=== PATIENT | male | born 1975 | race Caucasian/White ===

== ENCOUNTER → 2020-09-16 | Outpatient (CLI) | payer BC, OTHER ==
--- NOTE | 2020-09-16 08:31 | Diagnostic Imaging Report ---
PROCEDURE: CT abdomen and pelvis without contrast. TECHNIQUE: Multiple contiguous axial images were obtained through the abdomen and pelvis without the use of intravenous contrast. Auto Exposure Controls were utilized during the CT exam to meet ALARA standards for radiation dose reduction. INDICATION: Bilateral flank pain. Microhematuria. Nausea and vomiting. COMPARISON: None. FINDINGS: The heart is unremarkable. The lung bases are clear. A 5 mm calculus is seen at the right UVJ with mild right-sided hydroureteronephrosis. Bilateral nonobstructing calculi are present with the largest in the left mid kidney measuring 5 mm and the largest in the mid right kidney measuring 2 mm. No hydronephrosis is seen on the left kidney. No significant perinephric fat stranding. The urinary bladder is nondistended. Tiny focus of hypoattenuation is seen in the right hepatic lobe measuring 5 mm. This is favored to represent benign cyst or hemangioma. The gallbladder is unremarkable. No intra or extrahepatic biliary dilation. The spleen, pancreas, and adrenal glands have a normal appearance. There is no pathologically enlarged mesenteric or retroperitoneal adenopathy. The bowel loops are nondilated. The appendix is visualized in the right lower quadrant and has a normal appearance. Scattered diverticuli are present in the sigmoid colon without evidence of acute diverticulitis. There is no free fluid or free air. No acute osseous abnormalities. There is no free air, loculated collection, or adenopathy in the pelvis. IMPRESSION: 1. Obstructing calculus in the right UVJ with mild right-sided hydroureteronephrosis. 2. Bilateral nonobstructing calculi. 3. Scattered diverticuli without evidence of acute diverticulitis. Dictated by: Dictated on workstation # [id number]
== END ==
LOC: RAD 07:45
PROVIDERS: ATTEND Nurse Practitioner Family
DX: N20.2 Calculus of kidney with calculus of ureter (principal); I10 Essential (primary) hypertension; E78.49 Other hyperlipidemia; K57.30 Diverticulosis of large intestine without perforation or abscess without bleeding
CPT/HCPCS: 74176

== ENCOUNTER → 2021-11-26 | Outpatient (CLI) | payer BC ==
[2021-11-26 11:01] VITALS: BP 138/87
== END ==
LOC: CARD 10:00
PROVIDERS: ATTEND Internal Medicine Cardiovascular Disease
DX: R94.31 Abnormal electrocardiogram [ECG] [EKG] (principal)
CPT/HCPCS: 93017

== ENCOUNTER 2021-12-12 14:00 | Emergency (ER) | payer BC ==
[~2021-12-12] VITALS: Ht 177.8 cm; Wt 68.0 kg
[2021-12-12] MEDS ORDERED: NS IV 1000 ML 1,000 ML IV STA (14:33)
[2021-12-12 14:45] LABS: BASOPHILS # (AUTO) 0.1 10^3/uL (0.0-0.1); BASOPHILS % (AUTO) 1 % (0-10); EOSINOPHILS # (AUTO) 0.1 10^3/uL (0.0-0.3); EOSINOPHILS % (AUTO) 1 % (0-10); HEMATOCRIT 46 % (40-54); HEMOGLOBIN 16.3 g/dL (13.3-17.7); LYMPHOCYTES # (AUTO) 0.8 10^3/uL (1.0-4.0); LYMPHOCYTES % (AUTO) 9 % (12-44); MEAN CORPUSCULAR HEMOGLOBIN 31 pg (25-34); MEAN CORPUSCULAR HGB CONC 35 g/dL (32-36); MEAN CORPUSCULAR VOLUME 89 fL (80-99); MEAN PLATELET VOLUME 10.7 fL (9.0-12.2); MONOCYTES # (AUTO) 0.3 10^3/uL (0.0-1.0); MONOCYTES % (AUTO) 3 % (0-12); NEUTROPHILS # (AUTO) 8.5 10^3/uL (1.8-7.8); NEUTROPHILS % (AUTO) 87 % (42-75); PLATELET COUNT 218 10^3/uL (130-400); WHITE BLOOD COUNT 9.8 10^3/uL (4.3-11.0)
[2021-12-12 15:02] LABS: ALBUMIN 4.4 GM/DL (3.2-4.5); CHLORIDE 103 MMOL/L (98-107); POTASSIUM 4.2 MMOL/L (3.6-5.0); SODIUM 139 MMOL/L (135-145)
[2021-12-12 15:04] LABS: CALCIUM 9.5 MG/DL (8.5-10.1)
[2021-12-12 15:05] LABS: GLUCOSE 119 MG/DL (70-105); TOTAL PROTEIN 7.4 GM/DL (6.4-8.2)
[2021-12-12 15:06] LABS: CARBON DIOXIDE 22 MMOL/L (21-32)
--- NOTE | 2021-12-12 15:06 | ED Respiratory ---
General Chief Complaint: Respiratory Problems Stated Complaint: SOA/DIZZY Nursing Triage Note: ARRIVES TO ROOM 8 WITH A C/O SOB, ANXIETY R/T ADDITIONAL STRESS TEST HE IS TO TAKE NEXT TUESDAY AND JUST "NOT FEELING RIGHT" SINCE YESTERDAY. Source: patient (KIMANI HARRINGTON) History of Present Illness Date Seen by Provider: Dec 12, 2021 Time Seen by Provider: 15:08 Initial Comments Patient presents for shortness of breath for two days. He states he has anxiety and feels like it could be related, but he also had a "questionable" stress test recently. He was told he needs to have a repeat stress test on Tuesday of next week. He denies fever, chills, cough, chest pain, swelling. Severity: moderate Prior Episodes/Possible Cause: no prior episodes (KIMANI HARRINGTON) Allergies and Home Medications Allergies Coded Allergies: No Known Drug Allergies (Unverified , 11/07/09) Patient Home Medication List Home Medication List Reviewed: Yes (KIMANI HARRINGTON) Review of Systems Review of Systems Constitutional: no symptoms reported EENTM: no symptoms reported Respiratory: other (shortness of breath) Cardiovascular: no symptoms reported Gastrointestinal: no symptoms reported Genitourinary: no symptoms reported Musculoskeletal: no symptoms reported Skin: no symptoms reported (KIMANI HARRINGTON) Past Qkjzrcr-Ifprps-Cjykdv Hx Patient Social History Tobacco Use?: No Use of E-Cig and/or Vaping dev: No Substance use?: No Alcohol Use?: Yes Alcohol Frequency: Rarely Pt feels they are or have been: No (KIMANI HARRINGTON) Immunizations Up To Date First/Initial COVID19 Vaccinat: DECLINED (KIMANI HARRINGTON) Physical Exam Vital Signs - First Documented 12/12/21 14:10 Temp 36.8 Pulse 103 Resp 18 B/P (MAP) 141/93 (109) Pulse Ox 98 O2 Delivery Room Air (ASHLEY ADAMS MD) Capillary Refill : Less Than 3 Seconds (KIMANI HARRINGTON) Height: '" Weight: lbs. oz. 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 tested, no motor/sensory deficits, alert, normal mood/affect, oriented x 3 Skin: normal color, warm/dry (KIMANI HARRINGTON) Progress/Results/Core Measures Suspected Sepsis SIRS Temperature: Pulse: 103 Respiratory Rate: 18 Laboratory Tests 12/12/21 14:40: White Blood Count 9.8 Blood Pressure 141 /93 Mean: 109 Laboratory Tests 12/12/21 14:40: Creatinine 1.04, Platelet Count 218, Total Bilirubin 1.3H (KIMANI HARRINGTON) Results/Orders Lab Results Laboratory Tests Test 12/12/21 14:18 12/12/21 14:40 Range/Units Influenza Type A (RT-PCR) Not Detected Not Detecte Influenza Type B (RT-PCR) Not Detected Not Detecte SARS-CoV-2 RNA (RT-PCR) Not Detected Not Detecte White Blood Count 9.8 4.3-11.0 10^3/uL Red Blood Count 5.21 4.30-5.52 10^6/uL Hemoglobin 16.3 13.3-17.7 g/dL Hematocrit 46 40-54 % Mean Corpuscular Volume 89 80-99 fL Mean Corpuscular Hemoglobin 31 25-34 pg Mean Corpuscular Hemoglobin Concent 35 32-36 g/dL Red Cell Distribution Width 11.6 10.0-14.5 % Platelet Count 218 130-400 10^3/uL Mean Platelet Volume 10.7 9.0-12.2 fL Immature Granulocyte % (Auto) 0 % Neutrophils (%) (Auto) 87 H 42-75 % Lymphocytes (%) (Auto) 9 L 12-44 % Monocytes (%) (Auto) 3 0-12 % Eosinophils (%) (Auto) 1 0-10 % Basophils (%) (Auto) 1 0-10 % Neutrophils # (Auto) 8.5 H 1.8-7.8 10^3/uL Lymphocytes # (Auto) 0.8 L 1.0-4.0 10^3/uL Monocytes # (Auto) 0.3 0.0-1.0 10^3/uL Eosinophils # (Auto) 0.1 0.0-0.3 10^3/uL Basophils # (Auto) 0.1 0.0-0.1 10^3/uL Immature Granulocyte # (Auto) 0.0 0.0-0.1 10^3/uL D-Dimer 0.34 0.00-0.49 UG/ML Sodium Level 139 135-145 MMOL/L Potassium Level 4.2 3.6-5.0 MMOL/L Chloride Level 103 98-107 MMOL/L Carbon Dioxide Level 22 21-32 MMOL/L Anion Gap 14 5-14 MMOL/L Blood Urea Nitrogen 16 7-18 MG/DL Creatinine 1.04 0.60-1.30 MG/DL Estimat Glomerular Filtration Rate 89 BUN/Creatinine Ratio 15 Glucose Level 119 H 70-105 MG/DL Calcium Level 9.5 8.5-10.1 MG/DL Corrected Calcium 9.2 8.5-10.1 MG/DL Total Bilirubin 1.3 H 0.1-1.0 MG/DL Aspartate Amino Transf (AST/SGOT) 23 5-34 U/L Alanine Aminotransferase (ALT/SGPT) 43 0-55 U/L Alkaline Phosphatase 39 L 40-136 U/L Troponin I < 0.028 <0.028 NG/ML Total Protein 7.4 6.4-8.2 GM/DL Albumin 4.4 3.2-4.5 GM/DL (ASHLEY ADAMS MD) Vital Signs/I&O 12/12/21 12/12/21 12/12/21 14:10 14:10 15:56 Temp 36.8 Pulse 103 85 Resp 18 18 B/P (MAP) 141/93 (109) 121/79 Pulse Ox 98 98 O2 Delivery Room Air Room Air Room Air (ASHLEY ADAMS MD) Vital Signs/I&O Capillary Refill : Less Than 3 Seconds (KIMANI HARRINGTON) Blood Pressure Mean: 109 Departure Communication (Admissions) Labs/Imaging unremarkable. No evidence or suspicion of PE, AMI, pericarditis, myocarditis or other emergent condition. (KIMANI HARRINGTON) Impression Primary Impression: Shortness of breath Disposition: HOME, SELF-CARE Condition: Stable Departure-Patient Inst. Decision time for Depature: 15:30 (KIMANI HARRINGTON) Referrals: RACHEL DAVILA MD (PCP/Family) Primary Care Physician Patient Instructions: Shortness of Breath, Adult ED Add. Discharge Instructions: Please follow up closely with your platinumsmith as we discussed. Return to the emergency room with any severe changes or worsening of symptoms. All discharge instructions reviewed with patient and/or family. Voiced understanding. Scripts No Active Prescriptions or Reported Meds ATTENDING PHYSICIAN NOTE: I was physically present as attending physician in the emergency department during the care of this patient, but I was not directly involved in the decision making or delivery of care for this patient. (ASHLEY ADAMS MD) KIMANI HARRINGTON Dec 12, 2021 15:05 ASHLEY ADAMS MD Dec 14, 2021 01:04
[2021-12-12 15:07] LABS: BILIRUBIN,TOTAL 1.3 MG/DL (0.1-1.0)
[2021-12-12 15:08] LABS: ALKALINE PHOSPHATASE 39 U/L (40-136); CREATININE SERUM 1.04 MG/DL (0.60-1.30); GFR ESTIMATED 89
[2021-12-12 15:09] LABS: BUN/CREATININE RATIO 15
[2021-12-12 15:11] LABS: ALANINE AMINOTRANSFERASE 43 U/L (0-55)
--- NOTE | 2021-12-12 15:19 | Diagnostic Imaging Report ---
EXAMINATION: Chest 1 view. HISTORY: Shortness of breath. COMPARISON: None available. FINDINGS: The lungs are clear without edema or pneumonia. No pleural effusion or pneumothorax. Heart size is normal. IMPRESSION: Clear lungs. Dictated by: Dictated on workstation # [id number]
[2021-12-12 15:56] VITALS: BP 121/79
== END 2021-12-12 15:56 | disposition home or self-care (01) ==
LOC: EDUNIT# 14:00 → ER 14:04
DX: R06.02 Shortness of breath (principal); Z20.822 Contact with and (suspected) exposure to COVID-19; Z28.310 Unvaccinated for COVID-19
CPT/HCPCS: 36415; 71045; 80053; 84484; 85025; 85379; 87636; 93005

== ENCOUNTER → 2021-12-24 | Outpatient (CLI) | payer BC ==
[~2021-12-24] VITALS: Ht 177 cm; Wt 68.0 kg
[~2021-12-24] MED LIST: CATHETER FLUSH 10 ML SYR IVP PRN
[2021-12-24 09:15] VITALS: BP 135/87
--- NOTE | 2021-12-24 16:31 | NUCLEAR STRESS TEST ---
TREADMILL NUCLEAR STRESS TEST Date of procedure: 12/24/2021. Primary care provider: Andrei Saavedra MD. Admitting physician: Denny Flores Jr., MD. INDICATION: Abnormal stress test. BASELINE ELECTROCARDIOGRAM: Sinus rhythm with sinus arrhythmia. STRESS TEST PROCEDURE: The patient was exercised for a total of 10 minutes and 10 seconds of the standard Ayaz protocol achieving a maximum MET level of 11.9. The resting heart rate was 60 bpm and the peak heart rate was 161 bpm, which represents 93% of the maximum predicted heart rate. The resting blood pressure was 120/78 mmHg and the peak blood pressure was 179/84 mmHg. This represents a normal heart rate and a normal blood pressure response to exercise. The test was stopped due to target heart rate attained. There was no chest discomfort during the test. There were no arrhythmias during the test. There were positive stress induced electrocardiogram changes with approximately [address] depression in the inferolateral leads that improved in recovery. The patient exhibited excellent exercise capacity for age. NUCLEAR PROCEDURE: The patient was administered 10.8 mCi of intravenous technetium 99m Tetrofosmin at rest for the rest images. The patient was subsequently administered 31 mCi of intravenous technetium 99 M Tetrofosmin at peak stress for the stress images. Following an appropriate wait after each injection, imaging was obtained. The images were subsequently processed and reformatted in the usual views. Gated imaging was obtained. The image quality was adequate with a mild degree of gastrointestinal attenuation artifact. CT attenuation correction was used as a adjunct to standard imaging. Both the corrected and uncorrected images were reviewed for interpretation. NUCLEAR RESULTS: There was normal myocardial perfusion in all segments without evidence of infarction or ischemia. There was normal left ventricular chamber size with an end-diastolic volume of 76 mL and an end-systolic volume of 38 mL. There was no evidence of transient ischemic dilatation. The TID ratio was 0.99. There was normal wall motion in all segments with a calculated ejection fraction of 51%. IMPRESSION: 1. Normal heart rate and blood pressure response to exercise. 2. There was no exercise-induced chest discomfort or arrhythmias. 3. There were positive stress induced electrocardiogram changes with approximately [address] depression in the inferolateral leads that improved in recovery. 4. The patient exhibited excellent exercise capacity for age at 10 minutes and 10 seconds of the Ayaz protocol. 5. There was normal myocardial perfusion in all segments without evidence of infarction or ischemia. 6. There was normal wall motion in all segments with a calculated ejection fr action of 51%. Certain portions of this document may have been dictated utilizing voice recognition technology. Inherent to this technology, typographical and grammatical errors may exist. As much as I am diligent to identify and correct these mistakes, some errors may remain in the document. DENNY FLORES JR, MD Dec 24, 2021 16:31
== END ==
LOC: CARD 08:00
PROVIDERS: ATTEND Internal Medicine Cardiovascular Disease
DX: R94.39 Abnormal result of other cardiovascular function study (principal)
CPT/HCPCS: 78452; 93017; A9502

== ENCOUNTER → 2022-01-01 | Outpatient (CLI) | payer BC | LOC: CARD 10:08 | PROVIDERS: ATTEND Internal Medicine Cardiovascular Disease | DX: I51.7 Cardiomegaly (principal) | CPT/HCPCS: 93306 ==